=== PATIENT | female | born 1995 ===

== ENCOUNTER 2021-03-02 05:05 | Inpatient (IN) | payer BC ==
[2021-03-02] MEDS ORDERED: Sodium Chloride 0.9% 2.5 ML Syringe FLUSH PRN (05:15)
[2021-03-02] MEDS ORDERED: Sodium Chloride 0.9% 20 ML SDV IV PRN (05:15)
[2021-03-02] MEDS ORDERED: Citric Acid/Sodium Citrate Solution 30 ML Cup PO ONE (05:15)
[2021-03-02] MEDS ORDERED: Sodium Chloride 0.9% 10 ML Syringe FLUSH PRN (05:15)
[2021-03-02] MEDS ORDERED: Oxytocin/0.9 % Sodium Chloride 30 UNIT/500 ML BAG IV SCH (05:15)
[2021-03-02] MEDS ORDERED: Sodium Chloride 0.9% 20 ML SDV FLUSH PRN (05:22)
[2021-03-02] MEDS: Lactated Ringers 1,000 ML IV SCH ×4 (05:50→17:08)
[2021-03-02] MEDS ORDERED: ceFAZolin 2 GM in Premix Bag 1 BAG IV ONE (07:00)
[2021-03-02] MEDS ORDERED: Morphine PF 10 MG/10 ML SDV ONE (07:42)
--- NOTE | 2021-03-02 07:48 | PCM.PREANE ---
Preanesthetic Assessment - Anesthesia/Transfusion/Family Hx Anesthesia History: Prior Anesthesia Without Reaction Other Type of Anesthesia Reaction Comment: DENIES ANY PROBLEMS WITH ANESTHESIA Family History of Anesthesia Reaction: No Transfusion History: No Prior Transfusion(s) - Review of Systems General: No Symptoms Pulmonary: No Symptoms Cardiovascular: No Symptoms Gastrointestinal: No Symptoms Neurological: No Symptoms Other: Reports: None (Hypothyroid) - Physical Assessment NPO Status Date: 03/02/21 NPO Status Time: 00:00 Height: 1.63 m Weight: 97.976 kg ASA Class: 2 Mental Status: Alert & Oriented x3 Airway Class: Mallampati = 2 Dentition: Reports: Normal Dentition Thyro-Mental Finger Breadths: 3 Mouth Opening Finger Breadths: 3 ROM/Head Extension: Full Lungs: Clear to Auscultation, Normal Respiratory Effort Cardiovascular: Regular Rate, Regular Rhythm - Lab Values: Laboratory Last Values WBC 7.13 K/uL (4.0-11.0) 03/02/21 05:45 RBC 4.42 M/uL (4.30-5.90) 03/02/21 05:45 Hgb 12.4 g/dL (12.0-16.0) 03/02/21 05:45 Hct 37.0 % (36.0-46.0) 03/02/21 05:45 MCV 83.7 fL (80.0-98.0) 03/02/21 05:45 MCH 28.1 pg (27.0-32.0) 03/02/21 05:45 MCHC 33.5 g/dL (31.0-37.0) 03/02/21 05:45 RDW Std Deviation 42.0 fl (28.0-62.0) 03/02/21 05:45 RDW Coeff of Ansley 14 % (11.0-15.0) 03/02/21 05:45 Plt Count 230 K/uL (150-400) 03/02/21 05:45 MPV 10.30 fL (7.40-12.00) 03/02/21 05:45 Blood Type A POSITIVE 03/02/21 05:45 Antibody Screen NEGATIVE 03/02/21 05:45 - Allergies Allergies/Adverse Reactions: Allergies Allergy/AdvReac Type Severity Reaction Status Date / Time No Known Allergies Allergy Verified 03/02/21 05:14 - Blood Blood Available: Yes Product(s) Available: PRBC (Type and screen) - Anesthesia Plan Pre-Op Medication Ordered: Antacids - Acknowledgements Anesthesia Type Planned: Spinal Pt an Appropriate Candidate for the Planned Anesthesia: Yes Alternatives and Risks of Anesthesia Discussed w Pt/Guardian: Yes Pt/Guardian Understands and Agrees with Anesthesia Plan: Yes PreAnesthesia Questionnaire HEENT History: Reports: None Cardiovascular History: Reports: None Respiratory History: Reports: None Gastrointestinal History: Reports: None Genitourinary History: Reports: UTI, Recurrent TWISTHAND History: Reports: Musculoskeletal History: Reports: Fracture Other Musculoskeletal History: hx fx tailbone Neurological History: Reports: None Psychiatric History: Reports: None Endocrine/Metabolic History: Reports: Hypothyroidism Hematologic History: Reports: None Immunologic History: Reports: None Oncologic (Cancer) History: Reports: None Dermatologic History: Reports: None - Infectious Disease History Infectious Disease History: Reports: Chicken Pox Other Infectious Disease History: positive covid on feb 23 2021 - Past Surgical History Head Surgeries/Procedures: Reports: None HEENT Surgical History: Reports: Adenoidectomy, Tonsillectomy Other HEENT Surgeries/Procedures: wisdom teeth extraction Cardiovascular Surgical History: Reports: None Respiratory Surgical History: Reports: None GI Surgical History: Reports: None Female Surgical History: Reports: Section Endocrine Surgical History: Reports: None Neurological Surgical History: Reports: None Musculoskeletal Surgical History: Reports: None Oncologic Surgical History: Reports: None Dermatological Surgical History: Reports: None - SUBSTANCE USE Tobacco Use Status *Q: Never Tobacco User - HOME MEDS Home Medications: Home Meds Levothyroxine Sodium [Levothyroxine] 50 mcg PO DAILY 02/27/21 [History] Pnv No.95/Ferrous Fum/Folic AC [ Vitamin Tablet] 1 tab PO DAILY 02/27/21 [History] - CURRENT (IN HOUSE) MEDS Current Meds: Current Medications Oxytocin/Sodium Chloride (Oxytocin 30 Unit In Ns 0.9% 500 Ml Premix) 30 unit in 500 mls @ 250 mls/hr IV TITRATE CALI Lactated Ringer's (Ringers, Lactated) 1,000 mls @ 500 mls/hr IV BOLUS CALI Last Admin: 03/02/21 06:43 Dose: 500 mls/hr Documented by: Sodium Chloride (Sodium Chloride 0.9% 10 Ml Syringe) 10 ml FLUSH ASDIRECTED PRN PRN Reason: Keep Vein Open Sodium Chloride (Sodium Chloride 0.9% 2.5 Ml Syringe) 2.5 ml FLUSH ASDIRECTED PRN PRN Reason: Keep Vein Open Sodium Chloride (Sodium Chloride 0.9% 20 Ml Sdv) 10 ml FLUSH ASDIRECTED PRN PRN Reason: IV Use Discontinued Medications Citric Acid/Sodium Citrate (Citric Acid/Sodium Citrate Solution 30 Ml Cup) 30 ml PO ONETIME ONE Stop: 03/02/21 05:16 Cefazolin Sodium/Dextrose 2 gm (/ Premix) 50 mls @ 100 mls/hr IV ONETIME ONE Stop: 03/02/21 07:29 Morphine Sulfate (Morphine Pf 10 Mg/10 Ml Sdv) Confirm Administered Dose 10 mg .ROUTE .STK-MED ONE Stop: 03/02/21 07:43 Sodium Chloride (Sodium Chloride 0.9% 20 Ml Sdv) 10 ml IV ASDIRECTED PRN PRN Reason: IV Use
--- NOTE | 2021-03-02 08:07 | PCM.LDHP ---
L&D History of Present Illness - General Date of Service: 03/02/21 Admit Problem/Dx: Patient Status Order with Admit Dx/Problem 03/02/21 05:15 Patient Status [ADT] Routine Admission Diagnosis/Problem Admission Diagnosis/Problem Source of Information: Patient History Limitations: Reports: No Limitations - History of Present Illness Improves with: Reports: None Worsens with: Reports: None Associated Symptoms: Reports: N - Related Data Allergies/Adverse Reactions: Allergies Allergy/AdvReac Type Severity Reaction Status Date / Time No Known Allergies Allergy Verified 03/02/21 05:14 Home Medications: Home Meds Levothyroxine Sodium [Levothyroxine] 50 mcg PO DAILY 02/27/21 [History] Pnv No.95/Ferrous Fum/Folic AC [ Vitamin Tablet] 1 tab PO DAILY 02/27/21 [History] Past Medical History HEENT History: Reports: None Cardiovascular History: Reports: None Respiratory History: Reports: None Gastrointestinal History: Reports: None Genitourinary History: Reports: UTI, Recurrent 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: Musculoskeletal History: Reports: Fracture Other Musculoskeletal History: hx fx tailbone Neurological History: Reports: None Psychiatric History: Reports: None Endocrine/Metabolic History: Reports: Hypothyroidism Hematologic History: Reports: None Immunologic History: Reports: None Oncologic (Cancer) History: Reports: None Dermatologic History: Reports: None - Infectious Disease History Infectious Disease History: Reports: Chicken Pox Other Infectious Disease History: positive covid on feb 23 2021 - Past Surgical History Head Surgeries/Procedures: Reports: None HEENT Surgical History: Reports: Adenoidectomy, Tonsillectomy Other HEENT Surgeries/Procedures: wisdom teeth extraction Cardiovascular Surgical History: Reports: None Respiratory Surgical History: Reports: None GI Surgical History: Reports: None Female Surgical History: Reports: Section Endocrine Surgical History: Reports: None Neurological Surgical History: Reports: None Musculoskeletal Surgical History: Reports: None Oncologic Surgical History: Reports: None Dermatological Surgical History: Reports: None Social & Family History - Family History Cardiac: Reports: Blood Clots/VTE/DVT, Heart Murmur, [place] Respiratory: Reports: Sleep Apnea GI: Reports: Hepatitis, Hiatal Hernia OBGYN: Reports: Other (See Below) Other OBGYN Family History: miscarriages and c-sections Oncologic: Reports: Bone, Lymphoma - Tobacco Use Tobacco Use Status *Q: Never Tobacco User - Recreational Drug Use Drug Use in Last 12 Months: No H&P Review of Systems - Review of Systems: Review Of Systems: See Below General: Reports: No Symptoms HEENT: Reports: No Symptoms Pulmonary: Reports: No Symptoms Cardiovascular: Reports: No Symptoms Gastrointestinal: Reports: No Symptoms Genitourinary: Reports: No Symptoms Musculoskeletal: Reports: No Symptoms Skin: Reports: No Symptoms Psychiatric: Reports: No Symptoms Neurological: Reports: No Symptoms Hematologic/Lymphatic: Reports: No Symptoms Immunologic: Reports: No Symptoms L&D Exam - Exam Exam: See Below - Vital Signs Weight: 97.976 kg - OB Specific Contraction Intensity: Mild Movement: Active Heart Tones: Present Presentation: Vertex - De Anda Score De Anda Score Cervix Position: Posterior De Anda Score Consistency: Medium De Anda Score Effacement: 31-50% De Anda Score Dilation: Closed - Exam General: Alert, Oriented HEENT: PERRLA, Conjunctiva Clear, EACs Clear, EOMI, Hearing Intact, Mucosa Moist & [place], Nares Patent, Normal Nasal Septum, Posterior Pharynx Clear, TMs Clear Neck: Supple, Trachea Midline Lungs: Clear to Auscultation, Normal Respiratory Effort Cardiovascular: Regular Rate, Regular Rhythm GI/Abdominal Exam: Normal Bowel Sounds, Soft, Non-Tender, No Organomegaly, No Distention, No Abnormal Bruit, No Mass, Pelvis Stable Rectal Exam: Normal Exam, Normal Rectal Tone Genitourinary: Normal external exam, Normal bimanual exam, Normal speculum exam Back Exam: Normal Inspection, Full Range of Motion Extremities: Normal Inspection, Normal Range of Motion, Non-Tender, No Pedal Edema, Normal Capillary Refill Skin: Warm, Dry, Intact Neurological: Cranial Nerves Intact, Reflexes Equal Bilateral Psychiatric: Alert, Normal Affect, Normal Mood - Patient Data Lab Results Last 24 hrs: Laboratory Results - last 24 hr 03/02/21 03/02/21 Range/Units 05:45 05:45 WBC 7.13 (4.0-11.0) K/uL RBC 4.42 (4.30-5.90) M/uL Hgb 12.4 (12.0-16.0) g/dL Hct 37.0 (36.0-46.0) % MCV 83.7 (80.0-98.0) fL MCH 28.1 (27.0-32.0) pg MCHC 33.5 (31.0-37.0) g/dL RDW Std Deviation 42.0 (28.0-62.0) fl RDW Coeff of Ansley 14 (11.0-15.0) % Plt Count 230 (150-400) K/uL MPV 10.30 (7.40-12.00) fL Blood Type A POSITIVE Antibody Screen NEGATIVE Result Diagrams: 03/02/21 05:45 Problem List Initiated/Reviewed/Updated: Yes Orders Last 24hrs: Active Orders 24 hr Category Date Time Status Patient Status [ADT] Routine ADT 03/02/21 05:15 Active Antiembolic Devices [RC] PER UNIT ROUTINE Care 03/02/21 05:16 Active Insert Urinary Catheter [OM.PC] Routine Care 03/02/21 05:15 Ordered Notify Provider Vital Signs [RC] PRN Care 03/02/21 05:18 Active Procedure Site Prep Instruct [RC] ASDIRECTED Care 03/02/21 05:15 Active Up ad Manisha [RC] ASDIRECTED Care 03/02/21 05:15 Active Urinary Catheter Assessment [RC] ASDIRECTED Care 03/02/21 05:16 Active Verify Patient Consent Obtain [RC] ASDIRECTED Care 03/02/21 05:15 Active Vital Signs [RC] PER UNIT ROUTINE Care 03/02/21 05:15 Active RPR (SYPHILIS SERO) W/ RFLX [REF] Routine Lab 03/02/21 05:45 Received Lactated Ringers [Ringers, Lactated] 1,000 ml Med 03/02/21 05:15 Active IV BOLUS Oxytocin/0.9 % Sodium Chloride [Oxytocin 30 Unit in NS Med 03/02/21 05:15 Active 0.9% 500 ML Premix] 30 unit in 500 ml IV TITRATE Sodium Chloride 0.9% [Normal Saline] Med 03/02/21 05:22 Active 10 ml FLUSH ASDIRECTED PRN Sodium Chloride 0.9% [Saline Flush] Med 03/02/21 05:15 Active 10 ml FLUSH ASDIRECTED PRN Sodium Chloride 0.9% [Saline Flush] Med 03/02/21 05:15 Active 2.5 ml FLUSH ASDIRECTED PRN Peripheral IV Insertion Adult [OM.PC] Routine Oth 03/02/21 05:15 Ordered Schedule Procedure [COMM] Per Unit Routine Oth 03/02/21 05:15 Ordered Sequential Compression Device [OM.PC] Routine Oth 03/02/21 05:15 Ordered Resuscitation Status Routine Resus Stat 03/02/21 05:15 Ordered Medication Orders Oxytocin/Sodium Chloride (Oxytocin 30 Unit In Ns 0.9% 500 Ml Premix) 30 unit in 500 mls @ 250 mls/hr IV TITRATE CALI Lactated Ringer's (Ringers, Lactated) 1,000 mls @ 500 mls/hr IV BOLUS CALI Last Admin: 03/02/21 06:43 Dose: 500 mls/hr Documented by: Infusion: 03/02/21 06:43 Dose: 500 mls/hr Documented by: Admin: 03/02/21 05:50 Dose: 500 mls/hr Documented by: MAICOL Sodium Chloride (Sodium Chloride 0.9% 10 Ml Syringe) 10 ml FLUSH ASDIRECTED PRN PRN Reason: Keep Vein Open Sodium Chloride (Sodium Chloride 0.9% 2.5 Ml Syringe) 2.5 ml FLUSH ASDIRECTED PRN PRN Reason: Keep Vein Open Sodium Chloride (Sodium Chloride 0.9% 20 Ml Sdv) 10 ml FLUSH ASDIRECTED PRN PRN Reason: IV Use Assessment/Plan Comment:: Term admitted for elective repeat C/section.
[2021-03-02] MEDS ORDERED: ePHEDrine 50 MG/ML SDV ONE (08:59)
[2021-03-02] MEDS ORDERED: Oxytocin 10 Units/1 ML SDV ONE (08:59)
[2021-03-02] MEDS ORDERED: Glycopyrrolate 0.2 MG/ML SDV ONE (08:59)
[2021-03-02] MEDS ORDERED: Octyl 2-Cyanoacrylate 1 Tube ONE (09:05)
[2021-03-02] MEDS ORDERED: Ondansetron 4 MG/2 ML SDV IVPUSH PRN (09:14)
[2021-03-02] MEDS ORDERED: Tranexamic Acid 1,000 MG in Sodium Chloride 0.9% 100 ML IV PRN (09:14)
[2021-03-02] MEDS ORDERED: Oxytocin 10 Units/1 ML SDV IM PRN (09:14)
[2021-03-02] MEDS ORDERED: Acetaminophen/oxyCODONE 325-5 MG Tab PO PRN ×2 (09:14)
[2021-03-02] MEDS ORDERED: Methylergonovine 0.2 MG/1 ML Amp IM PRN (09:14)
[2021-03-02] MEDS ORDERED: Lanolin 100% Cream 7 GM Tube TOP PRN (09:14)
[2021-03-02] MEDS ORDERED: Bisacodyl 10 MG Supp RECTAL PRN (09:14)
[2021-03-02] MEDS ORDERED: Misoprostol 200 MCG Tab RECTAL PRN (09:14)
[2021-03-02] MEDS ORDERED: diphenhydrAMINE 50 MG/ML SDV IVPUSH PRN (09:14)
--- NOTE | 2021-03-02 09:18 | PCM.OPNOTE ---
- General Post-Op/Procedure Note Date of Surgery/Procedure: 03/02/21 Operative Procedure(s): Repeat C/section Pre Op Diagnosis: IUP 39wks previous C/section. Post-Op Diagnosis: Same Anesthesia Technique: Spinal Primary Surgeon: Estephania Randolph Secondary Surgeon: Ean Nice EBL in mLs: 750 Complications: None Condition: Good
--- NOTE | 2021-03-02 09:50 | PCM.POSTAN ---
POST ANESTHESIA ASSESSMENT - MENTAL STATUS Mental Status: Alert, Oriented - RESPIRATORY Respiratory Status: Respiratory Rate WNL, Airway Patent, O2 Saturation Stable - CARDIOVASCULAR CV Status: Pulse Rate WNL, Blood Pressure Stable - GASTROINTESTINAL GI Status: No Symptoms - POST OP HYDRATION Hydration Status: Adequate & Stable
--- NOTE | 2021-03-02 09:50 | PCM48HPAN ---
Post Anesthesia Note - EVALUATION WITHIN 48HRS OF ANESTHETIC Vital Signs in Normal Range: Yes Patient Participated in Evaluation: Yes Respiratory Function Stable: Yes Airway Patent: Yes Cardiovascular Function Stable: Yes Hydration Status Stable: Yes Pain Control Satisfactory: Yes Nausea and Vomiting Control Satisfactory: Yes Mental Status Recovered: Yes
[2021-03-02] MEDS: Ketorolac 30 MG/ML SDV IVPUSH SCH ×3 (11:11→23:15)
[2021-03-02] MEDS ORDERED: Famotidine 20 MG/2 ML SDV IVPUSH ONE (12:40)
[2021-03-02] MEDS ORDERED: Metoclopramide 10 MG/2 ML SDV IVPUSH ONE (12:41)
[2021-03-02] MEDS ORDERED: Promethazine 25 MG/ML SDV IM ONE (16:40)
[2021-03-02] MEDS ORDERED: Famotidine 20 MG/2 ML SDV IVPUSH PRN (18:17)
[2021-03-02] MEDS: Docusate Sodium 100 MG Cap PO SCH (21:19)
--- NOTE | 2021-03-03 01:28 | OR ---
SURGEON: Estephania Rowell MD DATE OF PROCEDURE: 03/02/2021 INDICATION FOR SURGERY: Term , history of prior , PREOPERATIVE DIAGNOSIS: Term , history of prior section. POSTOPERATIVE DIAGNOSIS: Term , history of prior section, livebirth. OPERATION: Elective repeat section. PRIMARY SURGEON: Estephania Rowell MD FORMULA CHECKER: Ean Nice MD ANESTHESIA: Spinal. ANESTHESIOLOGIST: INTRAOPERATIVE FLUID REPLACEMENT: 1800 mL. ESTIMATED BLOOD LOSS: 900 mL. URINE OUTPUT: 75 mL. DRAIN AND PACK: Rodriguez catheter draining clear urine. SPECIMEN: None. DELIVERY DETAILS: Live . weight 8 pounds 3 ounces. scores 8, 8. Placenta delivery method: Spontaneous. Maternal delivery complication: None. complication: None. TECHNIQUE: Alexa Kessler was taken to the operating room. She was then transferred to the operating table and placed in a dorsal supine position with a leftward tilt. After adequate anesthesia was confirmed, she was prepped and draped in the usual sterile fashion. A time-out was completed, and with IV fluid running and Rodriguez catheter draining, a Pfannenstiel skin incision was made and incision was carried down with Bovie cautery through the subcutaneous tissue to the underlying rectus fascia. The rectus fascia was incised in the midline and extended laterally. The underlying rectus muscle was dissected off and then in the midline and the parietal peritoneum was opened. A self- retaining retractor was placed and the lower uterine segment was identified. A bladder flap was made and a transverse incision was made. The incision was extended laterally with cephalocaudal traction. The infant's vertex was delivered atraumatically, followed by the reminder of the infant. The cord was clamped and cut and the was handed off to the pediatric staff. Blood was collected for possible cord gases and the placenta was delivered spontaneously. The uterus was then cleaned of all clots and debris and the incision was reapproximated in a running locked stitch fashion utilizing 0 Vicryl. A second running stitch imbricating the first layer was performed utilizing the same 0 Vicryl. Hemostasis was excellent. The self-retaining retractor was removed and peritoneum was closed in a running stitch fashion utilizing 3-0 Vicryl. The rectus fascia was then reapproximated with a PDS in a running stitch fashion. The subcutaneous tissue was also closed in a running stitch fashion utilizing another 3-0 Vicryl. Hemostasis was assured. The skin was then closed utilizing 4-0 Monocryl in a subcuticular fashion. All sponge, needle and instrument counts were correct per OR nursing staff. The patient was then taken back to the operating room in a stable condition. Prior to the surgery, the patient had 2 grams of Ancef. DALE ARDON /[id number] MTDD
[2021-03-03] MEDS: Ketorolac 30 MG/ML SDV IVPUSH SCH ×2 (04:50→11:03)
[2021-03-03] MEDS: Docusate Sodium 100 MG Cap PO SCH ×2 (11:03→20:42)
--- NOTE | 2021-03-03 17:17 | PCM.PNPP ---
- General Info Date of Service: 03/03/21 Admission Dx/Problem (Free Text): Patient Status Order with Admit Dx/Problem 03/02/21 05:15 Patient Status [ADT] Routine Admission Diagnosis/Problem Admission Diagnosis/Problem Subjective Update: S/P uncomplicated RLTCS. Patient reported some nausea and vomiting last evening but currently doing better. Appetite has returned and planing for breakfast. Has not passed gas, but denies bloateness. Rodriguez removed a few hours ago, and has not voided. Patient reports light vaginal bleeding. No SOB or CP. No lightheadedness or dizziness. Functional Status: Reports: Pain Controlled - General Info Date of Service: 03/03/21 - Patient Data Vital Signs - Most Recent: Last Vital Signs Temp 96.9 F 03/03/21 12:20 Pulse 71 03/03/21 12:20 Resp 15 03/03/21 12:20 BP 106/70 03/03/21 12:20 Pulse Ox 97 03/03/21 12:20 Weight - Most Recent: 97.976 kg I&O - Last 24 Hours: Intake & Output 03/03/21 03/03/21 03/03/21 06:59 14:59 22:59 Output Total 850 Balance -850 Lab Results - Last 24 Hours: Laboratory Results - last 24 hr 03/02/21 03/03/21 Range/Units 05:45 05:21 Hgb 10.7 L (12.0-16.0) g/dL Hct 32.0 L (36.0-46.0) % RPR Non-Reac (Non-Reac) Med Orders - Current: Current Medications Bisacodyl (Bisacodyl 10 Mg Supp) 10 mg RECTAL ONETIME PRN PRN Reason: Constipation Diphenhydramine HCl (Diphenhydramine 50 Mg/Ml Sdv) 25 mg IVPUSH Q6H PRN PRN Reason: Itching or Nausea Last Admin: 03/03/21 04:46 Dose: 25 mg Documented by: Docusate Sodium (Docusate Sodium 100 Mg Cap) 100 mg PO BID CALI Last Admin: 03/03/21 11:03 Dose: 100 mg Documented by: Emollient Ointment (Lanolin 100% Cream 7 Gm Tube) 0 gm TOP ASDIRECTED PRN PRN Reason: Sore Nipples Famotidine (Famotidine 20 Mg/2 Ml Sdv) 20 mg IVPUSH Q12H PRN PRN Reason: Nausea/Vomiting Oxytocin/Sodium Chloride (Oxytocin 30 Unit In Ns 0.9% 500 Ml Premix) 30 unit in 500 mls @ 250 mls/hr IV TITRATE [facility] Lactated Ringer's (Ringers, Lactated) 1,000 mls @ 500 mls/hr IV BOLUS [facility] Last Admin: 03/02/21 06:43 Dose: 500 mls/hr Documented by: Lactated Ringer's (Ringers, Lactated) 1,000 mls @ 125 mls/hr IV ASDIRECTED [facility] Last Admin: 03/02/21 17:08 Dose: 125 mls/hr Documented by: Tranexamic Acid 1,000 mg/ (Sodium Chloride) 110 mls @ 660 mls/hr IV ONETIME PRN PRN Reason: Bleeding Ibuprofen (Ibuprofen 800 Mg Tab) 800 mg PO Q8H PRN PRN Reason: Cramping Methylergonovine Maleate (Methylergonovine 0.2 Mg/1 Ml Amp) 0.2 mg IM ONETIME PRN PRN Reason: Excessive Vaginal Bleeding Misoprostol (Misoprostol 200 Mcg Tab) 1,000 mcg RECTAL ONETIME PRN PRN Reason: excessive bleeding Ondansetron HCl (Ondansetron 4 Mg/2 Ml Sdv) 4 mg IVPUSH Q4H PRN PRN Reason: Nausea/Vomiting Last Admin: 03/02/21 15:11 Dose: 4 mg Documented by: Oxycodone/Acetaminophen (Acetaminophen/Oxycodone 325-5 Mg Tab) 1 tab PO Q4H PRN PRN Reason: Pain (severe 7-10) Oxycodone/Acetaminophen (Acetaminophen/Oxycodone 325-5 Mg Tab) 2 tab PO Q4H PRN PRN Reason: Pain (severe 7-10) Oxytocin (Oxytocin 10 Units/1 Ml Sdv) 10 unit IM ASDIRECTED PRN PRN Reason: Excessive Vaginal Bleeding Sodium Chloride (Sodium Chloride 0.9% 10 Ml Syringe) 10 ml FLUSH ASDIRECTED PRN PRN Reason: Keep Vein Open Sodium Chloride (Sodium Chloride 0.9% 2.5 Ml Syringe) 2.5 ml FLUSH ASDIRECTED PRN PRN Reason: Keep Vein Open Sodium Chloride (Sodium Chloride 0.9% 20 Ml Sdv) 10 ml FLUSH ASDIRECTED PRN PRN Reason: IV Use Discontinued Medications Citric Acid/Sodium Citrate (Citric Acid/Sodium Citrate Solution 30 Ml Cup) 30 ml PO ONETIME ONE Stop: 03/02/21 05:16 Ephedrine Sulfate (Ephedrine 50 Mg/Ml Sdv) Confirm Administered Dose 50 mg .ROUTE .ST-MED ONE Stop: 03/02/21 09:00 Famotidine (Famotidine 20 Mg/2 Ml Sdv) 20 mg IVPUSH ONETIME ONE Stop: 03/02/21 12:41 Last Admin: 03/02/21 13:04 Dose: 20 mg Documented by: Glycopyrrolate (Glycopyrrolate 0.2 Mg/Ml Sdv) Confirm Administered Dose 0.4 mg .ROUTE .ST-MED ONE Stop: 03/02/21 09:00 Cefazolin Sodium/Dextrose 2 gm (/ Premix) 50 mls @ 100 mls/hr IV ONETIME ONE Stop: 03/02/21 07:29 Acetaminophen (Ofirmev 1000 Mg/100 Ml) Confirm Administered Dose 100 mls @ as directed .ROUTE .ST-MED ONE Stop: 03/02/21 08:00 Cefazolin Sodium/Dextrose (Ancef) Confirm Administered Dose 50 mls @ as directed .ROUTE .[facility]-MED ONE Stop: 03/02/21 08:00 Ketorolac Tromethamine (Ketorolac 30 Mg/Ml Sdv) 30 mg IVPUSH Q6H CALI Stop: 03/03/21 09:16 Last Admin: 03/03/21 11:03 Dose: 30 mg Documented by: Metoclopramide HCl (Metoclopramide 10 Mg/2 Ml Sdv) 10 mg IVPUSH ONETIME ONE Stop: 03/02/21 12:42 Last Admin: 03/02/21 12:58 Dose: 10 mg Documented by: Miscellaneous Medication (Phenylephrine Hcl In 0.9% Nacl 1 Mg/10 Ml Syringe) Confirm Administered Dose 1 mg .ROUTE .STK-MED ONE Stop: 03/02/21 09:00 Morphine Sulfate (Morphine Pf 10 Mg/10 Ml Sdv) Confirm Administered Dose 10 mg .ROUTE .ST-MED ONE Stop: 03/02/21 07:43 Octyl Cyanoacrylate (Octyl 2-Cyanoacrylate 1 Tube) Confirm Administered Dose 1 applic .ROUTE .STK-MED ONE Stop: 03/02/21 09:06 Oxytocin (Oxytocin 10 Units/1 Ml Sdv) Confirm Administered Dose 30 unit .ROUTE .STK-MED ONE Stop: 03/02/21 09:00 Promethazine HCl (Promethazine 25 Mg/Ml Sdv) 12.5 mg IM ONETIME ONE Stop: 03/02/21 16:41 Last Admin: 03/02/21 17:08 Dose: 12.5 mg Documented by: Sodium Chloride (Sodium Chloride 0.9% 20 Ml Sdv) 10 ml IV ASDIRECTED PRN PRN Reason: IV Use - Infant Interaction Infant Disposition, : [place] at Bedside Support Person: - Recovery Exam Fundal Tone: Firm Fundal Level: 1 Fingerbreadths Below Umbilicus Fundal Placement: Midline Lochia Amount: Scant Lochia Color: Rubra/Red Perineum Description: Intact, Minimal Bruising/Swelling Episiotomy/Laceration: None Bladder Status: Voiding Urinary Elimination: Voided - Exam General: Alert, Oriented Lungs: Normal Respiratory Effort Cardiovascular: Regular Rate Extremities: Normal Inspection Psy/Mental Status: Alert, Normal Affect, Normal Mood - Problem List & Annotations (1) Term delivered SNOMED Code(s): 94291476, 675036674 Code(s): O80 - ENCOUNTER FOR FULL-TERM UNCOMPLICATED DELIVERY Status: Acute Current Visit: Yes (2) S/P repeat low transverse SNOMED Code(s): 962893392, 19795423, 145118383, 121788195, 380332687 Code(s): Z98.891 - HISTORY OF UTERINE SCAR FROM PREVIOUS SURGERY Status: Acute Current Visit: Yes - Problem List Review Problem List Initiated/Reviewed/Updated: Yes - Plan Plan:: 25yo G3 now P2012 s/p uncomplicated RLTCS. Patient is doing well. Per last report from the nurse, patient has voided. Tolerating her food. Ambulating without issues. P: continue routine care
[2021-03-03] MEDS: Ibuprofen 800 MG Tab PO PRN (17:53)
[2021-03-04] MEDS: Ibuprofen 800 MG Tab PO PRN ×2 (04:54→15:28)
[2021-03-04 13:43] VITALS: BP 127/88; PULSE 61
--- NOTE | 2021-03-04 14:24 | PCM.PNPP ---
- General Info Date of Service: 03/04/21 Subjective Update: POD#2 S/P uncomplicated RLTCS. Patient has voided and passed gas. Tolerating food without nausea or vomiting Patient reports light vaginal bleeding. No SOB or CP. No lightheadedness or dizziness. Functional Status: Reports: Pain Controlled - Review of Systems General: Reports: No Symptoms HEENT: Reports: No Symptoms Pulmonary: Reports: No Symptoms Cardiovascular: Reports: No Symptoms Gastrointestinal: Reports: No Symptoms Genitourinary: Reports: No Symptoms Musculoskeletal: Reports: No Symptoms Skin: Reports: No Symptoms Neurological: Reports: No Symptoms Psychiatric: Reports: No Symptoms - General Info Date of Service: 03/04/21 - Patient Data Vital Signs - Most Recent: Last Vital Signs Temp 97.2 F 03/04/21 12:30 Pulse 61 03/04/21 12:30 Resp 19 03/04/21 12:30 BP 127/88 03/04/21 12:30 Pulse Ox 95 03/04/21 12:30 Weight - Most Recent: 97.976 kg Med Orders - Current: Current Medications Bisacodyl (Bisacodyl 10 Mg Supp) 10 mg RECTAL ONETIME PRN PRN Reason: Constipation Diphenhydramine HCl (Diphenhydramine 50 Mg/Ml Sdv) 25 mg IVPUSH Q6H PRN PRN Reason: Itching or Nausea Last Admin: 03/03/21 04:46 Dose: 25 mg Documented by: Docusate Sodium (Docusate Sodium 100 Mg Cap) 100 mg PO BID [facility] Last Admin: 03/03/21 20:42 Dose: 100 mg Documented by: Emollient Ointment (Lanolin 100% Cream 7 Gm Tube) 0 gm TOP ASDIRECTED PRN PRN Reason: Sore Nipples Famotidine (Famotidine 20 Mg/2 Ml Sdv) 20 mg IVPUSH Q12H PRN PRN Reason: Nausea/Vomiting Oxytocin/Sodium Chloride (Oxytocin 30 Unit In Ns 0.9% 500 Ml Premix) 30 unit in 500 mls @ 250 mls/hr IV TITRATE [facility] Lactated Ringer's (Ringers, Lactated) 1,000 mls @ 500 mls/hr IV BOLUS [facility] Last Admin: 03/02/21 06:43 Dose: 500 mls/hr Documented by: Lactated Ringer's (Ringers, Lactated) 1,000 mls @ 125 mls/hr IV ASDIRECTED [facility] Last Admin: 03/02/21 17:08 Dose: 125 mls/hr Documented by: Tranexamic Acid 1,000 mg/ (Sodium Chloride) 110 mls @ 660 mls/hr IV ONETIME PRN PRN Reason: Bleeding Ibuprofen (Ibuprofen 800 Mg Tab) 800 mg PO Q8H PRN PRN Reason: Cramping Last Admin: 03/04/21 04:54 Dose: 800 mg Documented by: Methylergonovine Maleate (Methylergonovine 0.2 Mg/1 Ml Amp) 0.2 mg IM ONETIME PRN PRN Reason: Excessive Vaginal Bleeding Misoprostol (Misoprostol 200 Mcg Tab) 1,000 mcg RECTAL ONETIME PRN PRN Reason: excessive bleeding Ondansetron HCl (Ondansetron 4 Mg/2 Ml Sdv) 4 mg IVPUSH Q4H PRN PRN Reason: Nausea/Vomiting Last Admin: 03/02/21 15:11 Dose: 4 mg Documented by: Oxycodone/Acetaminophen (Acetaminophen/Oxycodone 325-5 Mg Tab) 1 tab PO Q4H PRN PRN Reason: Pain (severe 7-10) Last Admin: 03/03/21 23:25 Dose: 1 tab Documented by: Oxycodone/Acetaminophen (Acetaminophen/Oxycodone 325-5 Mg Tab) 2 tab PO Q4H PRN PRN Reason: Pain (severe 7-10) Oxytocin (Oxytocin 10 Units/1 Ml Sdv) 10 unit IM ASDIRECTED PRN PRN Reason: Excessive Vaginal Bleeding Sodium Chloride (Sodium Chloride 0.9% 10 Ml Syringe) 10 ml FLUSH ASDIRECTED PRN PRN Reason: Keep Vein Open Sodium Chloride (Sodium Chloride 0.9% 2.5 Ml Syringe) 2.5 ml FLUSH ASDIRECTED PRN PRN Reason: Keep Vein Open Sodium Chloride (Sodium Chloride 0.9% 20 Ml Sdv) 10 ml FLUSH ASDIRECTED PRN PRN Reason: IV Use Discontinued Medications Citric Acid/Sodium Citrate (Citric Acid/Sodium Citrate Solution 30 Ml Cup) 30 ml PO ONETIME ONE Stop: 03/02/21 05:16 Ephedrine Sulfate (Ephedrine 50 Mg/Ml Sdv) Confirm Administered Dose 50 mg .ROUTE .STK-MED ONE Stop: 03/02/21 09:00 Famotidine (Famotidine 20 Mg/2 Ml Sdv) 20 mg IVPUSH ONETIME ONE Stop: 03/02/21 12:41 Last Admin: 03/02/21 13:04 Dose: 20 mg Documented by: Glycopyrrolate (Glycopyrrolate 0.2 Mg/Ml Sdv) Confirm Administered Dose 0.4 mg .ROUTE .STK-MED ONE Stop: 03/02/21 09:00 Cefazolin Sodium/Dextrose 2 gm (/ Premix) 50 mls @ 100 mls/hr IV ONETIME ONE Stop: 03/02/21 07:29 Acetaminophen (Ofirmev 1000 Mg/100 Ml) Confirm Administered Dose 100 mls @ as directed .ROUTE .ST-MED ONE Stop: 03/02/21 08:00 Cefazolin Sodium/Dextrose (Ancef) Confirm Administered Dose 50 mls @ as directed .ROUTE .ST-MED ONE Stop: 03/02/21 08:00 Ketorolac Tromethamine (Ketorolac 30 Mg/Ml Sdv) 30 mg IVPUSH Q6H [facility] Stop: 03/03/21 09:16 Last Admin: 03/03/21 11:03 Dose: 30 mg Documented by: Metoclopramide HCl (Metoclopramide 10 Mg/2 Ml Sdv) 10 mg IVPUSH ONETIME ONE Stop: 03/02/21 12:42 Last Admin: 03/02/21 12:58 Dose: 10 mg Documented by: Miscellaneous Medication (Phenylephrine Hcl In 0.9% Nacl 1 Mg/10 Ml Syringe) Confirm Administered Dose 1 mg .ROUTE .ST-MED ONE Stop: 03/02/21 09:00 Morphine Sulfate (Morphine Pf 10 Mg/10 Ml Sdv) Confirm Administered Dose 10 mg .ROUTE .STK-MED ONE Stop: 03/02/21 07:43 Octyl Cyanoacrylate (Octyl 2-Cyanoacrylate 1 Tube) Confirm Administered Dose 1 applic .ROUTE .STK-MED ONE Stop: 03/02/21 09:06 Oxytocin (Oxytocin 10 Units/1 Ml Sdv) Confirm Administered Dose 30 unit .ROUTE .STK-MED ONE Stop: 03/02/21 09:00 Promethazine HCl (Promethazine 25 Mg/Ml Sdv) 12.5 mg IM ONETIME ONE Stop: 03/02/21 16:41 Last Admin: 03/02/21 17:08 Dose: 12.5 mg Documented by: Sodium Chloride (Sodium Chloride 0.9% 20 Ml Sdv) 10 ml IV ASDIRECTED PRN PRN Reason: IV Use - Interaction Disposition, : at Bedside Support Person: - Recovery Exam Fundal Tone: Firm Fundal Level: 1 Fingerbreadths Below Umbilicus Fundal Placement: Midline Lochia Amount: Scant Lochia Color: Rubra/Red Perineum Description: Intact, Minimal Bruising/Swelling Episiotomy/Laceration: None Bladder Status: Voiding Urinary Elimination: Voided - Exam General: Alert, Oriented Lungs: Normal Respiratory Effort Cardiovascular: Regular Rate GI/Abdominal Exam: Soft, Non-Tender Psy/Mental Status: Alert, Normal Affect, Normal Mood - Problem List & Annotations (1) Term delivered SNOMED Code(s): 72504354, 276958377 Code(s): O80 - ENCOUNTER FOR FULL-TERM UNCOMPLICATED DELIVERY Status: Acute Current Visit: Yes (2) S/P repeat low transverse SNOMED Code(s): 915369685, 82332455, 765382418, 037420490, 677863282 Code(s): Z98.891 - HISTORY OF UTERINE SCAR FROM PREVIOUS SURGERY Status: Acute Current Visit: Yes - Problem List Review Problem List Initiated/Reviewed/Updated: Yes - Plan Plan:: 25yo G3 now P2012 s/p uncomplicated RLTCS. Patient is doing well. Per last report from the nurse, patient has voided and passing gas. Tolerating her food. Ambulating without issues. P: continue routine care
--- NOTE | 2021-03-04 14:37 | PCM.DCSUM1 ---
Discharge Summary - Hospital Course Free Text/Narrative:: G3 now P2012 S/P uncomplicated RLTCS @ 38w5d Patient has voided and passed gas. Tolerating food without nausea or vomiting Patient reports light vaginal bleeding. No SOB or CP. No lightheadedness or dizziness. course unremarkable Diagnosis: Stroke: No - Discharge Data Discharge Date: 03/04/21 Discharge Disposition: Home, Self-Care 01 Condition: Good - Referral to Home Health Primary Care Physician: Ean Nice MD - Discharge Diagnosis/Problem(s) (1) Term delivered SNOMED Code(s): 99715195, 095503758 ICD Code: O80 - ENCOUNTER FOR FULL-TERM UNCOMPLICATED DELIVERY Status: Acute Current Visit: Yes (2) S/P repeat low transverse SNOMED Code(s): 562506208, 04663240, 160817971, 957490436, 407601097 ICD Code: Z98.891 - HISTORY OF UTERINE SCAR FROM PREVIOUS SURGERY Status: Acute Current Visit: Yes - Patient Summary/Data Operative Procedure(s) Performed: Repeat C/section - Discharge Plan Home Medications: Home Meds Levothyroxine Sodium [Levothyroxine] 50 mcg PO DAILY 02/27/21 [History] Pnv No.95/Ferrous Fum/Folic AC [ Vitamin Tablet] 1 tab PO DAILY 02/27/21 [History] Referrals: Roly Fernandez [Ordering Only Provider] - 04/12/21 9:30 am (6 week post- appointment with Dr. Nice. Bring insurance and ID cards with you. Masks are required. ) Ean Nice MD [Primary Care Provider] - 03/13/21 10:45 am (You may bring your with to your appointment. Bring insurance and ID cards with you. Masks are required.) - Discharge Summary/Plan Comment DC Time >30 min.: Yes Total # of Minutes for Discharge Time: >30mns - General Info Date of Service: 03/04/21 Admission Dx/Problem (Free Text: Patient Status Order with Admit Dx/Problem 03/02/21 05:15 Patient Status [ADT] Routine Admission Diagnosis/Problem Admission Diagnosis/Problem Subjective Update: POD#2 S/P uncomplicated RLTCS. Patient has voided and passed gas. Tolerating food without nausea or vomiting Patient reports light vaginal bleeding. No SOB or CP. No lightheadedness or dizziness. Functional Status: Reports: Pain Controlled - Review of Systems General: Reports: No Symptoms Neurological: Reports: No Symptoms Psychiatric: Reports: No Symptoms - Patient Data Vitals - Most Recent: Last Vital Signs Temp 97.2 F 03/04/21 12:30 Pulse 61 03/04/21 12:30 Resp 19 03/04/21 12:30 BP 127/88 03/04/21 12:30 Pulse Ox 95 03/04/21 12:30 Weight - Most Recent: 97.976 kg Med Orders - Current: Current Medications Bisacodyl (Bisacodyl 10 Mg Supp) 10 mg RECTAL ONETIME PRN PRN Reason: Constipation Diphenhydramine HCl (Diphenhydramine 50 Mg/Ml Sdv) 25 mg IVPUSH Q6H PRN PRN Reason: Itching or Nausea Last Admin: 03/03/21 04:46 Dose: 25 mg Documented by: Docusate Sodium (Docusate Sodium 100 Mg Cap) 100 mg PO BID [facility] Last Admin: 03/03/21 20:42 Dose: 100 mg Documented by: Emollient Ointment (Lanolin 100% Cream 7 Gm Tube) 0 gm TOP ASDIRECTED PRN PRN Reason: Sore Nipples Famotidine (Famotidine 20 Mg/2 Ml Sdv) 20 mg IVPUSH Q12H PRN PRN Reason: Nausea/Vomiting Oxytocin/Sodium Chloride (Oxytocin 30 Unit In Ns 0.9% 500 Ml Premix) 30 unit in 500 mls @ 250 mls/hr IV TITRATE [facility] Lactated Ringer's (Ringers, Lactated) 1,000 mls @ 500 mls/hr IV BOLUS [facility] Last Admin: 03/02/21 06:43 Dose: 500 mls/hr Documented by: Lactated Ringer's (Ringers, Lactated) 1,000 mls @ 125 mls/hr IV ASDIRECTED [facility] Last Admin: 03/02/21 17:08 Dose: 125 mls/hr Documented by: Tranexamic Acid 1,000 mg/ (Sodium Chloride) 110 mls @ 660 mls/hr IV ONETIME PRN PRN Reason: Bleeding Ibuprofen (Ibuprofen 800 Mg Tab) 800 mg PO Q8H PRN PRN Reason: Cramping Last Admin: 03/04/21 04:54 Dose: 800 mg Documented by: Methylergonovine Maleate (Methylergonovine 0.2 Mg/1 Ml Amp) 0.2 mg IM ONETIME PRN PRN Reason: Excessive Vaginal Bleeding Misoprostol (Misoprostol 200 Mcg Tab) 1,000 mcg RECTAL ONETIME PRN PRN Reason: excessive bleeding Ondansetron HCl (Ondansetron 4 Mg/2 Ml Sdv) 4 mg IVPUSH Q4H PRN PRN Reason: Nausea/Vomiting Last Admin: 03/02/21 15:11 Dose: 4 mg Documented by: Oxycodone/Acetaminophen (Acetaminophen/Oxycodone 325-5 Mg Tab) 1 tab PO Q4H PRN PRN Reason: Pain (severe 7-10) Last Admin: 03/03/21 23:25 Dose: 1 tab Documented by: Oxycodone/Acetaminophen (Acetaminophen/Oxycodone 325-5 Mg Tab) 2 tab PO Q4H PRN PRN Reason: Pain (severe 7-10) Oxytocin (Oxytocin 10 Units/1 Ml Sdv) 10 unit IM ASDIRECTED PRN PRN Reason: Excessive Vaginal Bleeding Sodium Chloride (Sodium Chloride 0.9% 10 Ml Syringe) 10 ml FLUSH ASDIRECTED PRN PRN Reason: Keep Vein Open Sodium Chloride (Sodium Chloride 0.9% 2.5 Ml Syringe) 2.5 ml FLUSH ASDIRECTED PRN PRN Reason: Keep Vein Open Sodium Chloride (Sodium Chloride 0.9% 20 Ml Sdv) 10 ml FLUSH ASDIRECTED PRN PRN Reason: IV Use Discontinued Medications Citric Acid/Sodium Citrate (Citric Acid/Sodium Citrate Solution 30 Ml Cup) 30 ml PO ONETIME ONE Stop: 03/02/21 05:16 Ephedrine Sulfate (Ephedrine 50 Mg/Ml Sdv) Confirm Administered Dose 50 mg .ROUTE .STK-MED ONE Stop: 03/02/21 09:00 Famotidine (Famotidine 20 Mg/2 Ml Sdv) 20 mg IVPUSH ONETIME ONE Stop: 03/02/21 12:41 Last Admin: 03/02/21 13:04 Dose: 20 mg Documented by: Glycopyrrolate (Glycopyrrolate 0.2 Mg/Ml Sdv) Confirm Administered Dose 0.4 mg .ROUTE .STK-MED ONE Stop: 03/02/21 09:00 Cefazolin Sodium/Dextrose 2 gm (/ Premix) 50 mls @ 100 mls/hr IV ONETIME ONE Stop: 03/02/21 07:29 Acetaminophen (Ofirmev 1000 Mg/100 Ml) Confirm Administered Dose 100 mls @ as directed .ROUTE .STK-MED ONE Stop: 03/02/21 08:00 Cefazolin Sodium/Dextrose (Ancef) Confirm Administered Dose 50 mls @ as directed .ROUTE .STK-MED ONE Stop: 03/02/21 08:00 Ketorolac Tromethamine (Ketorolac 30 Mg/Ml Sdv) 30 mg IVPUSH Q6H [facility] Stop: 03/03/21 09:16 Last Admin: 03/03/21 11:03 Dose: 30 mg Documented by: Metoclopramide HCl (Metoclopramide 10 Mg/2 Ml Sdv) 10 mg IVPUSH ONETIME ONE Stop: 03/02/21 12:42 Last Admin: 03/02/21 12:58 Dose: 10 mg Documented by: Miscellaneous Medication (Phenylephrine Hcl In 0.9% Nacl 1 Mg/10 Ml Syringe) Confirm Administered Dose 1 mg .ROUTE .STK-MED ONE Stop: 03/02/21 09:00 Morphine Sulfate (Morphine Pf 10 Mg/10 Ml Sdv) Confirm Administered Dose 10 mg .ROUTE .STK-MED ONE Stop: 03/02/21 07:43 Octyl Cyanoacrylate (Octyl 2-Cyanoacrylate 1 Tube) Confirm Administered Dose 1 applic .ROUTE .STK-MED ONE Stop: 03/02/21 09:06 Oxytocin (Oxytocin 10 Units/1 Ml Sdv) Confirm Administered Dose 30 unit .ROUTE .STK-MED ONE Stop: 03/02/21 09:00 Promethazine HCl (Promethazine 25 Mg/Ml Sdv) 12.5 mg IM ONETIME ONE Stop: 03/02/21 16:41 Last Admin: 03/02/21 17:08 Dose: 12.5 mg Documented by: Sodium Chloride (Sodium Chloride 0.9% 20 Ml Sdv) 10 ml IV ASDIRECTED PRN PRN Reason: IV Use - Exam General: Reports: Alert, Oriented Lungs: Reports: Normal Respiratory Effort Extremities: Normal Inspection Psy/Mental Status: Reports: Alert, Normal Affect, Normal Mood
== END 2021-03-04 15:40 | disposition home or self-care (01) | DRG 540 ==
LOC: MW.OB 05:05
PROVIDERS: ADMIT Obstetrics & Gynecology; ATTEND Obstetrics & Gynecology
PROC: 10D00Z1 Extraction of Products of Conception, Low, Open Approach (ICD-10-PCS; principal; 2021-03-02)
DX: O34.211 Maternal care for low transverse scar from previous cesarean delivery (principal); Z3A.38 38 weeks gestation of pregnancy; Z37.0 Single live birth; O99.284 Endocrine, nutritional and metabolic diseases complicating childbirth; E03.9 Hypothyroidism, unspecified; Z79.890 Hormone replacement therapy
CPT/HCPCS: 01961; 36415; 59025; 82947; 85014; 85018; 85027; 86592; 86850; 86900; 86901; A9270-GY; J0131; J0690; J1200; J1885; J2270; J2370; J2405; J2550; J2590; J2765; J3490; J7120